=== PATIENT | female | born 1995 | race Caucasian/White ===

== ENCOUNTER 2021-06-07 19:46 | Inpatient (IN) ==
[2021-06-07 22:02] LABS: Basophils # (auto) 0.01 K/uL (0-0.2); Basophils % (auto) 0.1 %; Eosinophils # (auto) 0.09 K/uL (0-0.5); Hematocrit (blood only) 41.5 % (37-47); Hemoglobin 13.5 g/dL (12.0-16.0); Immature Granulocytes # (auto) 0.01 K/uL (0.00-0.02); Immature Granulocytes % (auto) 0.1 %; Lymphocytes # (auto) 2.21 K/uL (1.2-3.4); Lymphocytes % (auto) 24.3 %; Mean Corpuscular Hemoglobin 29.2 pg (25-34); Mean Corpuscular Hgb Conc 32.5 g/dL (32-36); Mean Corpuscular Volume 89.8 fL (80-100); Monocytes # (auto) 0.75 K/uL (0.11-0.59); Monocytes % (auto) 8.3 %; Neutrophils # (auto) 6.01 K/uL (1.4-6.5); Neutrophils % (auto) 66.2 %; Platelet Count 406 K/uL (130-400); RDW Coefficient of Variation 13.5 % (11.5-14.5); RDW Standard Deviation 44.2 fL (36.4-46.3); Red Blood Count 4.62 M/uL (4.2-5.4); White Blood Count 9.08 K/uL (4.8-10.8)
[2021-06-07 22:23] LABS: Albumin Globulin Ratio 1.5 (0.9-2); Albumin Level 4.4 gm/dl (3.4-5.0); BUN Creatinine Ratio 13.8 (10-20); Bilirubin,Total 0.4 mg/dl (0.2-1.0); Calcium 9.8 mg/dl (8.5-10.1); Creatinine Clr Calc Pharmacy 106.8 ml/min; Est GFR (African American) 116.3 ml/min; Est GFR (Non-African American) 100.3 ml/min; Globulin 2.9 gm/dl (2.5-4.0); Potassium 3.9 mmol/L (3.5-5.1); Total Protein 7.3 gm/dl (6.0-8.3)
[2021-06-07 22:31] LABS: Acetaminophen < 3 ug/ml (10-30); Salicylate < 3.0 mg/dl (3.0-30)
[2021-06-07 23:41] LABS: Appearance Urine Clear (Clear); Bilirubin Urine Negative (Negative); Blood Urine Negative (Negative); Color Urine Yellow; Glucose Urine UA Negative (Negative); Ketones Urine 1+ (Negative); Leukocyte Esterase Urine Negative (Negative); Nitrite Urine Negative (Negative); Protein Urine Negative (Negative); Specific Gravity Urine 1.026 (1.000-1.030); Urobilinogen Urine Negative (Negative)
--- NOTE | 2021-06-07 23:45 | Emergency Department Note ---
Impression & Plan Depression with suicidal ideation, Mood disorder ED Provider Note NAME: TARA VIRK AGE: 26 SEX: F : 1995 ARRIVES VIA: Walk-In INFORMANT: Patient ED PROVIDER(S): Shan Price DO CHIEF COMPLAINT: depression HPI: Patient is a 26-year-old female who presents ER for worsening depression. She notes that she has been taking her medications but she is been feeling more depressed recently. She is been thinking about killing herself and currently has a plan to hang herself. She would go off by herself or no one would find her and hang herself. She denies any headache or change in vision. No chest pain or shortness of breath. No nausea vomiting or diarrhea. No other exacerbating or remitting factors. She was referred in by her psychiatrist from [facility] to be admitted. ROS: See above HPI for pertinent positives & negatives. A total of 10 systems reviewed and were otherwise negative. PAST MEDICAL HISTORY:See Below PAST SURGICAL HISTORY:See Below FAMILY HISTORY:See Below SOCIAL HISTORY:See Below HOME MEDICATIONS:See Below ALLERGIES:See Below VITALS:See Below PHYSICAL EXAMINATION: GENERAL: Sitting up in bed, alert, well appearing, well nourished, no distress, non-toxic EYE EXAM: normal conjunctiva. OROPHARYNX: mucous membranes are moist LUNGS: Clear to auscultation. Normal chest wall mechanics HEART: no murmurs, S1 normal and S2 normal ABDOMEN: abdomen soft, non-tender, normo-active bowel sounds, no masses, no rebound or guarding. UPPER EXTREMITIES: upper extremities are grossly normal. LOWER EXTREMITIES: No pitting edema. NEURO EXAM: Normal sensorium, cranial nerves II-XII grossly intact, normal speech, no gross weakness of arms, no gross weakness of legs. MEDICAL DECISION MAKING: Patient is a 26-year-old female with a past medical history of depression who presents ER for above-stated complaint. Blood work was obtained and showed no significant leukocytosis or anemia. Platelets were slightly up. BMP along with LFTs bilirubin and TSH was unremarkable. UA was clean. was negative. Tox was clean. Alcohol negative. Covid negative. Patient has suicidal ideations with a clear plan. She wants to come in to be admitted. She was evaluated by her psychiatric day care aide. She was referred to see [facility] S. for admission on . Pt was signed out to Dr. Boyd awaiting placement. Triage Nursing notes reviewed. Limited review of prior medical records performed Vital Signs: reviewed and remarkable for tachy Differential diagnosis: Mood disorder, infection, hypoglycemia, electrolyte abnormalities, cardiac sources, intracerebral event, toxicologic, trauma, neurologic, as well as other pathologies. ER treatment provided: See below Diagnostics interpreted by me: ECG: none Laboratory studies: As stated above and show below. Imaging studies: See below Consultation(s): none Procedures: none Critical Care: None Past Med/Surg History Social History Smoking Status: Current every day smoker Feels Safe at Home: Yes Allergies Allergies Allergy/AdvReac Type Severity Reaction Status Date / Time No Known Allergies Allergy Unverified 06/07/21 23:53 Home Meds Home Medications Medication Instructions Recorded Confirmed escitalopram oxalate 20 mg tablet 20 mg PO QAM 06/07/21 06/07/21 Results & Data (ED) Vital Signs Vital Signs - 24 hr 06/07/21 19:54 Temperature 36.6 C Temperature Source Temporal Artery Scan Pulse Rate 122 H Respiratory Rate 18 Respiratory Effort / Characteristics Non-Labored Spontaneous Respiratory Depth Normal Respiratory Pattern Regular Blood Pressure 140/84 Blood Pressure Mean 102 Blood Pressure Position Sitting Pulse Oximetry 97 Oxygen Delivery Method Room Air Sepsis Recent Fever Within 48 Hours No Sepsis New/Unexplained Change in Mental Status No Sepsis Action Taken by Nursing No Action Required Laboratory Data Result diagrams: 06/07/21 21:50 06/07/21 21:50 Lab Results 06/07/21 06/07/21 06/07/21 Range/Units 21:50 21:50 21:50 WBC 9.08 (4.8-10.8) K/uL RBC 4.62 (4.2-5.4) M/uL Hgb 13.5 (12.0-16.0) g/dL Hct 41.5 (37-47) % MCV 89.8 (80-100) fL MCH 29.2 (25-34) pg MCHC 32.5 (32-36) g/dL RDW Std Deviation 44.2 (36.4-46.3) fL RDW Coeff of Danial 13.5 (11.5-14.5) % Plt Count 406 H (130-400) K/uL MPV 10.0 (7.4-10.4) fL Immature Gran % (Auto) 0.1 % Neut % (Auto) 66.2 % Lymph % (Auto) 24.3 % [place] % (Auto) 8.3 % Eos % (Auto) 1.0 % Baso % (Auto) 0.1 % Neut # (Auto) 6.01 (1.4-6.5) K/uL Lymph # (Auto) 2.21 (1.2-3.4) K/uL [place] # (Auto) 0.75 H (0.11-0.59) K/uL Eos # (Auto) 0.09 (0-0.5) K/uL Baso # (Auto) 0.01 (0-0.2) K/uL Immature Gran # (Auto) 0.01 (0.00-0.02) K/uL Sodium 138 (136-145) mmol/L Potassium 3.9 (3.5-5.1) mmol/L Chloride 106 (98-107) mmol/L Carbon Dioxide 24 (21-32) mmol/L Anion Gap 8 (3-11) BUN 11 (6-23) mg/dl Creatinine 0.80 (0.6-1.2) mg/dl Est Cr Clr Drug Dosing 106.8 ml/min Est GFR ( Amer) 116.3 ml/min Est GFR (Non-Af Amer) 100.3 ml/min BUN/Creatinine Ratio 13.8 (10-20) Glucose 94 (70-99(Fasting)) mg/dl Calcium 9.8 (8.5-10.1) mg/dl Total Bilirubin 0.4 (0.2-1.0) mg/dl AST 29 (13-39) U/L ALT 40 (7-52) U/L Alkaline Phosphatase 87 (34-104) U/L Total Protein 7.3 (6.0-8.3) gm/dl Albumin 4.4 (3.4-5.0) gm/dl Globulin 2.9 (2.5-4.0) gm/dl Albumin/Globulin Ratio 1.5 (0.9-2) TSH 2.416 (0.300-4.500) uIu/ml Urine Color Urine Appearance (Clear) Urine pH (4.5-7.5) Ur Specific [place] (1.000-1.030) Urine Protein (Negative) Urine Glucose (UA) (Negative) Urine Ketones (Negative) Urine Blood (Negative) Urine Nitrite (Negative) Urine Bilirubin (Negative) Urine Urobilinogen (Negative) Ur Leukocyte Esterase (Negative) POC Ur Test (NEG) Salicylates (3.0-30) mg/dl Urine Opiates Screen (Neg) Ur Methadone, Qual (Neg) Acetaminophen (10-30) ug/ml Urine Barbiturates (Neg) Ur Phencyclidine (PCP) (Neg) U Amphetamin/Meth Scrn (Neg) MDMA (Ecstasy) Screen (Neg) U Benzodiazepines Scrn (Neg) Ur Cocaine Metabolite (Neg) U Marijuana (THC) Screen (Neg) Ethyl Alcohol mg/dL (<10.0) mg/dl SARS-CoV-2, RNA, NAAT (NEGATIVE) 06/07/21 06/07/21 06/07/21 Range/Units 21:50 21:50 23:08 WBC (4.8-10.8) K/uL RBC (4.2-5.4) M/uL Hgb (12.0-16.0) g/dL Hct (37-47) % MCV (80-100) fL MCH (25-34) pg MCHC (32-36) g/dL RDW Std Deviation (36.4-46.3) fL RDW Coeff of Danial (11.5-14.5) % Plt Count (130-400) K/uL MPV (7.4-10.4) fL Immature Gran % (Auto) % Neut % (Auto) % Lymph % (Auto) % [place] % (Auto) % Eos % (Auto) % Baso % (Auto) % Neut # (Auto) (1.4-6.5) K/uL Lymph # (Auto) (1.2-3.4) K/uL [place] # (Auto) (0.11-0.59) K/uL Eos # (Auto) (0-0.5) K/uL Baso # (Auto) (0-0.2) K/uL Immature Gran # (Auto) (0.00-0.02) K/uL Sodium (136-145) mmol/L Potassium (3.5-5.1) mmol/L Chloride (98-107) mmol/L Carbon Dioxide (21-32) mmol/L Anion Gap (3-11) BUN (6-23) mg/dl Creatinine (0.6-1.2) mg/dl Est Cr Clr Drug Dosing ml/min Est GFR ( Amer) ml/min Est GFR (Non-Af Amer) ml/min BUN/Creatinine Ratio (10-20) Glucose (70-99(Fasting)) mg/dl Calcium (8.5-10.1) mg/dl Total Bilirubin (0.2-1.0) mg/dl AST (13-39) U/L ALT (7-52) U/L Alkaline Phosphatase (34-104) U/L Total Protein (6.0-8.3) gm/dl Albumin (3.4-5.0) gm/dl Globulin (2.5-4.0) gm/dl Albumin/Globulin Ratio (0.9-2) TSH (0.300-4.500) uIu/ml Urine Color Urine Appearance (Clear) Urine pH (4.5-7.5) Ur Specific [place] (1.000-1.030) Urine Protein (Negative) Urine Glucose (UA) (Negative) Urine Ketones (Negative) Urine Blood (Negative) Urine Nitrite (Negative) Urine Bilirubin (Negative) Urine Urobilinogen (Negative) Ur Leukocyte Esterase (Negative) POC Ur Test (NEG) Salicylates < 3.0 L (3.0-30) mg/dl Urine Opiates Screen (Neg) Ur Methadone, Qual (Neg) Acetaminophen < 3 L (10-30) ug/ml Urine Barbiturates (Neg) Ur Phencyclidine (PCP) (Neg) U Amphetamin/Meth Scrn (Neg) MDMA (Ecstasy) Screen (Neg) U Benzodiazepines Scrn (Neg) Ur Cocaine Metabolite (Neg) U Marijuana (THC) Screen (Neg) Ethyl Alcohol mg/dL < 10.0 (<10.0) mg/dl SARS-CoV-2, RNA, NAAT NEGATIVE (NEGATIVE) 06/07/21 06/07/21 06/07/21 Range/Units 23:15 23:15 Unknown WBC (4.8-10.8) K/uL RBC (4.2-5.4) M/uL Hgb (12.0-16.0) g/dL Hct (37-47) % MCV (80-100) fL MCH (25-34) pg MCHC (32-36) g/dL RDW Std Deviation (36.4-46.3) fL RDW Coeff of Danial (11.5-14.5) % Plt Count (130-400) K/uL MPV (7.4-10.4) fL Immature Gran % (Auto) % Neut % (Auto) % Lymph % (Auto) % [place] % (Auto) % Eos % (Auto) % Baso % (Auto) % Neut # (Auto) (1.4-6.5) K/uL Lymph # (Auto) (1.2-3.4) K/uL [place] # (Auto) (0.11-0.59) K/uL Eos # (Auto) (0-0.5) K/uL Baso # (Auto) (0-0.2) K/uL Immature Gran # (Auto) (0.00-0.02) K/uL Sodium (136-145) mmol/L Potassium (3.5-5.1) mmol/L Chloride (98-107) mmol/L Carbon Dioxide (21-32) mmol/L Anion Gap (3-11) BUN (6-23) mg/dl Creatinine (0.6-1.2) mg/dl Est Cr Clr Drug Dosing ml/min Est GFR ( Amer) ml/min Est GFR (Non-Af Amer) ml/min BUN/Creatinine Ratio (10-20) Glucose (70-99(Fasting)) mg/dl Calcium (8.5-10.1) mg/dl Total Bilirubin (0.2-1.0) mg/dl AST (13-39) U/L ALT (7-52) U/L Alkaline Phosphatase (34-104) U/L Total Protein (6.0-8.3) gm/dl Albumin (3.4-5.0) gm/dl Globulin (2.5-4.0) gm/dl Albumin/Globulin Ratio (0.9-2) TSH (0.300-4.500) uIu/ml Urine Color Yellow Urine Appearance Clear (Clear) Urine pH 5.0 (4.5-7.5) Ur Specific [place] 1.026 (1.000-1.030) Urine Protein Negative (Negative) Urine Glucose (UA) Negative (Negative) Urine Ketones 1+ H (Negative) Urine Blood Negative (Negative) Urine Nitrite Negative (Negative) Urine Bilirubin Negative (Negative) Urine Urobilinogen Negative (Negative) Ur Leukocyte Esterase Negative (Negative) POC Ur Test NEG (NEG) Salicylates (3.0-30) mg/dl Urine Opiates Screen Neg (Neg) Ur Methadone, Qual Neg (Neg) Acetaminophen (10-30) ug/ml Urine Barbiturates Neg (Neg) Ur Phencyclidine (PCP) Neg (Neg) U Amphetamin/Meth Scrn Neg (Neg) MDMA (Ecstasy) Screen Neg (Neg) U Benzodiazepines Scrn Neg (Neg) Ur Cocaine Metabolite Neg (Neg) U Marijuana (THC) Screen Neg (Neg) Ethyl Alcohol mg/dL (<10.0) mg/dl SARS-CoV-2, RNA, NAAT (NEGATIVE) Discharge Plan Visit Data Chief Complaint: Mental Health Evaluation Stated Complaint: MENTAL HEALTH EVAL ED Provider: Shan Price Discharge Problem: Depression with suicidal ideation, Mood disorder Forms Stand Alone Forms: My [facility], Suicide Prevention Resources Prescriptions Prescriptions: No Action escitalopram oxalate 20 mg tablet 20 mg PO QAM RF: 0 Referrals Referrals: Manoj Prieto MD [Primary Care Provider] -
[2021-06-08 00:03] LABS: Amphetamines+Metham, Urine Neg (Neg); Barbiturates, Urine Neg (Neg); Benzodiazepine, Urine Neg (Neg); Cocaine, Urine Neg (Neg); MDMA (Ecstacy), Urine Neg (Neg); Methadone, Urine Neg (Neg); Opiate, Urine Neg (Neg); Phencyclidine, Urine Neg (Neg)
[2021-06-08] MEDS ORDERED: hydrOXYzine HCl 25 MG TAB PO PRN ×2 (00:59)
[2021-06-08] MEDS ORDERED: SODIUM CHLORIDE 0.65% NA SOLN 45 ML (OCEAN) PRN (00:59)
[2021-06-08] MEDS ORDERED: MAGNESIUM HYDROXIDE SUSP 30 ML UDC PO PRN (00:59)
[2021-06-08] MEDS ORDERED: BISMUTH SUBSALICYLATE LIQD 236 ML PO PRN (00:59)
[2021-06-08] MEDS ORDERED: ALUMINUM/MAGNESIUM SUSP 30 ML UDC PO PRN (00:59)
[2021-06-08] MEDS ORDERED: ACETAMINOPHEN 325 MG TAB PO PRN (00:59)
--- NOTE | 2021-06-08 02:11 | Emergency Department Note ---
ED Visit Note Patient was admitted to [facility] after evaluation by the psychiatric counselor at 2:11 AM .
[2021-06-08] MEDS ORDERED: ESCITALOPRAM OXALATE 10 MG TAB PO STA (12:14)
[2021-06-08] MEDS ORDERED: ESCITALOPRAM OXALATE 10 MG TAB PO SCH (12:15)
--- NOTE | 2021-06-08 12:34 | History & Physical ---
Date of Service June 08, 2021 Impression / Recommendations Impression 26 yo female with chronic dysthymia presenting with double depression (superimposed MDD) following phase of life transition. Depression interfered with taking licensing exams and she is grieving her cat. (1) Depression with suicidal ideation: (2) Persistent depressive disorder: The patient was admitted to the [facility] ([facility] mental health unit) on q15 min checks (behavioral with suicide precautions) for safety. The patient will participate in group, recreational, and milieu therapies and will be offered additional individual and family sessions as clinically appropriate. Risks/benefits/alternatives reviewed re: antidepressants for the treatment of depression and/or anxiety. Discussed continuing Lexapro trial or switching to an SNRI. Patient would like additional time to consider so will take Lexapro 10 mg today and reassess options in am. 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 Chief Complaint "I've been depressed for as long as I can remember but never had suicidal thoughts like this". 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 She had difficulty focussing and getting up for work and "that on top of my ADHD was too much". Her mother came out to help her mood and one of her 2 cats in the car in it's carrier on the third day of the trip. She does not view herself as a particularly anxious person but she is having alot of negative self talk over her job prospects and hopeless re: requirements for [place] licensure. None of her internal medicine nurse practitioner hours count. She also feels unable to work at this time due to intrusive negative thoughts and suicidal ideation. Her energy and motivation are poor. She met with [facility] psychiatry via telehealth yesterday and was directed to the ED due to persistent suicidal ideation with plan. She had thoughts to hang herself and had thought of a place and which stores she could go to to buy the rope. She views her mother and step-father as supportive and has a network of friends but the friends are predominately in [facility] so she feels somewhat isolated. She states that growing up she always felt "different" and relates that to realization that she was colon. Although she was aware from elementary school she did not come out to her family until pharmacy school and she doesn't report being in a relationship for some time. She was a "B/C" student in pharmacy school so did not seek a residency. She reports inattentive symptoms of ADHD since childhood but that she didn't need to study much in high school or college. She hasn't tolerated medications very well in the past or only had transient response. Past Psychiatric History Previous Psych History: saw psychiatric shotblast equipment operator until appt yesterday with Dr. Clements at [facility] and Brittny Moore. Current Psychiatric Diagnosis: MDD Previous Psych Admissions: none Do You Have Access To A Gun?: No Describe Attempts in the Past: attempted carbon monoxide poisoned during undergrad (per [facility]) Past Medication Trials: Prozac up to 60 mg, only benefit for 1 month; lamical (denies manic or hypomanic symptoms), Wellbutrin (2 separate trials, irritable both times), Vyvanse (severe insomnia), Adderall (helpful but makes intrussive thoughts worse), Lexapro 2-3 weeks--no perceived benefit. Allergies Allergy/AdvReac Type Severity Reaction Status Date / Time No Known Allergies Allergy Unverified 06/07/21 23:53 Home Medications Medication Instructions Recorded Confirmed Type escitalopram oxalate 20 mg tablet 20 mg PO QAM 06/07/21 06/07/21 History Family History Family History of: Depression and Bipolar Family Mental Health History Comment: paternal aunt and uncle with bipolar, aunt attempted suicide; maternal cousin with SA; cousin with D&A; brother depression Alcohol History Hx of Alcohol Use Over the Past 12 Months: No AUDIT Total Score: 0 Smoking Use Have You Smoked or Used Tobacco Products in the Last 30 Days: Yes tobacco type: e-cigarettes Smoking Status: Current every day smoker Substance History Hx of Prescription Med Misuse Over the Past 12 Months: No Hx of Over the Counter Med Misuse Over the Past 12 Months: No Hx of Inhalent Misuse Over the Past 12 Months: No Hx of Organic Substance Use Over the Past 12 Months: Yes (THC - ocassionally) Hx of Illegal Substances/Street Drug Use Over Past 12 Months: No Problems as a Result of Past Substance Use: None Identified Problems as a Result of Past Substance Use Comments: Hx of experimental substance use from age [age]. THC recently Personal History Living Arrangements: Home (with mother and step-father) Childhood: raised in [place] until moved here in 5th Highest Grade Completed: Graduate School (Pharm D) Employment Status: Unemployed Marital Status: Single Number Of Children: 0 Beliefs That Will Affect Care: None Current Legal Problems: No Hx Legal Problems: No Hx Traumatic Life Events: Yes (loss of cat) Patient History Medical History (Updated 06/08/21 @ 12:55 by Aurea Childers MD) No active medical problems Social History Smoking Status: Current every day smoker Preferred Language: Cambodian Communication Ability: Effective Bench Grinder Required: No Beliefs That Will Affect Care: None Feels Safe at Home: Yes Assistive Devices: Glasses Review of Systems Review of Systems: All systems reviewed & are unremarkable except as noted in HPI & below Physical Exam Psychiatric: Orientation: alert and oriented x 3 Apperance: appropriately dressed and appropriately groomed Eye Contact: good eye contact Motor Behavior: no abnormal motor movements Speech: normal rate/rhythm/volume of speech Affect: + depressed affect Mood: + depressed mood Thought Process: goal directed thought process Thought Content: reality based without delusions Suicidal Thoughts: denies suicidal intent (on unit); + reports suicidal thoughts and + reports suicidal plan Homicidal Thoughts: denies homicidal thoughts Hallucinations: no auditory hallucinations and no visual hallucinations Cognition: attention grossly intact and language grossly intact Estimated Intelligence: consistent with education level Insight: + limited insight Judgement: + limited judgement Vital Signs (Past 24 Hours): Last Vital Signs Temp 36.5 C 06/08/21 06:30 Pulse 85 06/08/21 06:31 Resp 16 06/08/21 06:30 BP 117/82 06/08/21 06:31 Pulse Ox 97 06/08/21 02:14 Exam Statement: A physical exam was performed in the ED by Dr. Price for the purposes of medical clearance. I accept that physical as correct and adequate for the purposes of the inpatient physical exam. Results & Data ([facility]) Laboratory Results Laboratory Results - last 24 hr 06/07/21 06/07/21 06/07/21 21:50 21:50 21:50 WBC 9.08 RBC 4.62 Hgb 13.5 Hct 41.5 MCV 89.8 MCH 29.2 MCHC 32.5 RDW Std Deviation 44.2 RDW Coeff of Danial 13.5 Plt Count 406 H MPV 10.0 Immature Gran % (Auto) 0.1 Neut % (Auto) 66.2 Lymph % (Auto) 24.3 Sac % (Auto) 8.3 Eos % (Auto) 1.0 Baso % (Auto) 0.1 Neut # (Auto) 6.01 Lymph # (Auto) 2.21 Sac # (Auto) 0.75 H Eos # (Auto) 0.09 Baso # (Auto) 0.01 Immature Gran # (Auto) 0.01 Sodium 138 Potassium 3.9 Chloride 106 Carbon Dioxide 24 Anion Gap 8 BUN 11 Creatinine 0.80 Est Cr Clr Drug Dosing 106.8 Est GFR ( Amer) 116.3 Est GFR (Non-Af Amer) 100.3 BUN/Creatinine Ratio 13.8 Glucose 94 Calcium 9.8 Total Bilirubin 0.4 AST 29 ALT 40 Alkaline Phosphatase 87 Total Protein 7.3 Albumin 4.4 Globulin 2.9 Albumin/Globulin Ratio 1.5 TSH 2.416 Urine Color Urine Appearance Urine pH Ur Specific [place] Urine Protein Urine Glucose (UA) Urine Ketones Urine Blood Urine Nitrite Urine Bilirubin Urine Urobilinogen Ur Leukocyte Esterase POC Ur Test Salicylates Urine Opiates Screen Ur Methadone, Qual Acetaminophen Urine Barbiturates Ur Phencyclidine (PCP) U Amphetamin/Meth Scrn MDMA (Ecstasy) Screen U Benzodiazepines Scrn Ur Cocaine Metabolite U Marijuana (THC) Screen Ethyl Alcohol mg/dL SARS-CoV-2, RNA, NAAT 06/07/21 06/07/21 06/07/21 21:50 21:50 23:08 WBC RBC Hgb Hct MCV MCH MCHC RDW Std Deviation RDW Coeff of Danial Plt Count MPV Immature Gran % (Auto) Neut % (Auto) Lymph % (Auto) Sac % (Auto) Eos % (Auto) Baso % (Auto) Neut # (Auto) Lymph # (Auto) Sac # (Auto) Eos # (Auto) Baso # (Auto) Immature Gran # (Auto) Sodium Potassium Chloride Carbon Dioxide Anion Gap BUN Creatinine Est Cr Clr Drug Dosing Est GFR ( Amer) Est GFR (Non-Af Amer) BUN/Creatinine Ratio Glucose Calcium Total Bilirubin AST ALT Alkaline Phosphatase Total Protein Albumin Globulin Albumin/Globulin Ratio TSH Urine Color Urine Appearance Urine pH Ur Specific [place] Urine Protein Urine Glucose (UA) Urine Ketones Urine Blood Urine Nitrite Urine Bilirubin Urine Urobilinogen Ur Leukocyte Esterase POC Ur Test Salicylates < 3.0 L Urine Opiates Screen Ur Methadone, Qual Acetaminophen < 3 L Urine Barbiturates Ur Phencyclidine (PCP) U Amphetamin/Meth Scrn MDMA (Ecstasy) Screen U Benzodiazepines Scrn Ur Cocaine Metabolite U Marijuana (THC) Screen Ethyl Alcohol mg/dL < 10.0 SARS-CoV-2, RNA, NAAT NEGATIVE 06/07/21 06/07/21 06/07/21 23:15 23:15 Unknown WBC RBC Hgb Hct MCV MCH MCHC RDW Std Deviation RDW Coeff of Danial Plt Count MPV Immature Gran % (Auto) Neut % (Auto) Lymph % (Auto) Sac % (Auto) Eos % (Auto) Baso % (Auto) Neut # (Auto) Lymph # (Auto) Sac # (Auto) Eos # (Auto) Baso # (Auto) Immature Gran # (Auto) Sodium Potassium Chloride Carbon Dioxide Anion Gap BUN Creatinine Est Cr Clr Drug Dosing Est GFR ( Amer) Est GFR (Non-Af Amer) BUN/Creatinine Ratio Glucose Calcium Total Bilirubin AST ALT Alkaline Phosphatase Total Protein Albumin Globulin Albumin/Globulin Ratio TSH Urine Color Yellow Urine Appearance Clear Urine pH 5.0 Ur Specific [place] 1.026 Urine Protein Negative Urine Glucose (UA) Negative Urine Ketones 1+ H Urine Blood Negative Urine Nitrite Negative Urine Bilirubin Negative Urine Urobilinogen Negative Ur Leukocyte Esterase Negative POC Ur Test NEG Salicylates Urine Opiates Screen Neg Ur Methadone, Qual Neg Acetaminophen Urine Barbiturates Neg Ur Phencyclidine (PCP) Neg U Amphetamin/Meth Scrn Neg MDMA (Ecstasy) Screen Neg U Benzodiazepines Scrn Neg Ur Cocaine Metabolite Neg U Marijuana (THC) Screen Neg Ethyl Alcohol mg/dL SARS-CoV-2, RNA, NAAT Current Inpatient Medications Current Inpatient Medications: Current Inpatient Medications Acetaminophen (Acetaminophen 325 Mg Tab) 650 mg PO Q4H PRN PRN Reason: Headache or Minor Fever Stop: 07/08/21 00:58 Al Hydrox/Mg Hydrox/Simethicone (Aluminum/Magnesium Susp 30 Ml Udc) 30 ml PO Q4H PRN PRN Reason: GI Upset Stop: 07/08/21 00:58 Bismuth Subsalicylate (Bismuth Subsalicylate Liqd 236 Ml) 15 ml PO PRN PRN PRN Reason: Loose Stool Stop: 07/08/21 00:58 Escitalopram Oxalate (Escitalopram Oxalate 10 Mg Tab) 10 mg PO QAM ROBERT Stop: 07/09/21 08:59 Hydroxyzine HCl (Hydroxyzine Hcl 25 Mg Tab) 50 mg PO HSZ PRN PRN Reason: Insomnia Stop: 07/08/21 00:58 Hydroxyzine HCl (Hydroxyzine Hcl 25 Mg Tab) 25 mg PO Q4H PRN PRN Reason: Anxiety Stop: 07/08/21 00:58 Magnesium Hydroxide (Magnesium Hydroxide Susp 30 Ml Udc) 30 ml PO DAILY PRN PRN Reason: Constipation Stop: 07/08/21 00:58 Sodium Chloride (Sodium Chloride 0.65% Na Soln 45 Ml ([place])) 1 - 2 sprays NA PRN PRN PRN Reason: Nasal Dryness/Congestion Stop: 07/08/21 00:58
[2021-06-09] MEDS ORDERED: ESCITALOPRAM OXALATE 10 MG TAB PO SCH (09:00)
[2021-06-09] MEDS ORDERED: DULoxetine HCL 20 MG CAP PO ONE (11:05)
--- NOTE | 2021-06-09 14:08 | Psychiatric Progress Note ---
Date of Service June 09, 2021 Impression / Recommendations Impression TARA VIRK is a 26-year-old F who currently lives in [place] with family and was admitted on 06/08/21 00:59 on a 201 voluntary commitment for SI with plan. (1) Depression with suicidal ideation: (2) Persistent depressive disorder: 06/09/21: re-reviewed risks/benefits/alternatives re: SNRI and agreed to a trial of Cymbalta. D/C Lexapro. Start Cymbalta 20 mg today as already received Lexapro 10 (no discontinuation symptoms), and titrate to typical starting dose 30 mg Cymbalta tomorrow. Continued inpatient hospitalization is medically necessary for ongoing monitoring and safety. 06/08/21: The patient was admitted to the [facility] ([facility] mental health unit) on q15 min checks (behavioral with suicide precautions) for safety. The patient will participate in group, recreational, and milieu therapies and will be offered additional individual and family sessions as clinically appropriate. Risks/benefits/alternatives reviewed re: antidepressants for the treatment of depression and/or anxiety. Discussed continuing Lexapro trial or switching to an SNRI. Patient would like additional time to consider so will take Lexapro 10 mg today and reassess options in am. 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 Chief Complaint "I still feel pretty flat. I guess I'm OK" Review of Systems Sleep Information Total Hours of Sleep: 6 Sleep Comments: pt on q-15 minute checks Meal Information Percent Meal Consumed - Breakfast: 100 Percent Meal Consumed - Lunch: 100 Percent Meal Consumed - Dinner: 40 Subjective Subjective Patient was seen & assessed and interval progress reviewed with treatment nursing and social work. Continues to report hopelessness/passive SI. Not particularly hopeful about medication but willing to switch to an SSRI as discussed. Cooperative with unit routines. slept after pm group. Notes fair attention with reading. Physical Exam Psychiatric Orientation: alert and oriented x 3 Apperance: appropriately dressed and appropriately groomed Eye Contact: good eye contact Motor Behavior: no abnormal motor movements Speech: normal rate/rhythm/volume of speech Affect: + depressed affect Mood: + depressed mood Thought Process: goal directed thought process Thought Content: reality based without delusions Suicidal Thoughts: denies suicidal intent (on unit); + reports suicidal thoughts (less frequent/intense) Homicidal Thoughts: denies homicidal thoughts Hallucinations: no auditory hallucinations and no visual hallucinations Cognition: attention grossly intact and language grossly intact Estimated Intelligence: consistent with education level Insight: + limited insight Judgement: + limited judgement Vital Signs (Past 24 Hours) Last Vital Signs Temp 36.7 C 06/09/21 06:30 Pulse 77 06/09/21 06:31 Resp 16 06/09/21 06:30 BP 121/84 06/09/21 06:31 Pulse Ox 97 06/08/21 02:14 Results & Data ([facility]) Current Inpatient Medications Current Inpatient Medications: Current Inpatient Medications Acetaminophen (Acetaminophen 325 Mg Tab) 650 mg PO Q4H PRN PRN Reason: Headache or Minor Fever Stop: 07/08/21 00:58 Al Hydrox/Mg Hydrox/Simethicone (Aluminum/Magnesium Susp 30 Ml Udc) 30 ml PO Q4H PRN PRN Reason: GI Upset Stop: 07/08/21 00:58 Bismuth Subsalicylate (Bismuth Subsalicylate Liqd 236 Ml) 15 ml PO PRN PRN PRN Reason: Loose Stool Stop: 07/08/21 00:58 Duloxetine HCl (Duloxetine Hcl 30 Mg Cap) 30 mg PO QAM ROBERT Stop: 07/10/21 08:59 Hydroxyzine HCl (Hydroxyzine Hcl 25 Mg Tab) 50 mg PO HSZ PRN PRN Reason: Insomnia Stop: 07/08/21 00:58 Hydroxyzine HCl (Hydroxyzine Hcl 25 Mg Tab) 25 mg PO Q4H PRN PRN Reason: Anxiety Stop: 07/08/21 00:58 Magnesium Hydroxide (Magnesium Hydroxide Susp 30 Ml Udc) 30 ml PO DAILY PRN PRN Reason: Constipation Stop: 07/08/21 00:58 Sodium Chloride (Sodium Chloride 0.65% Na Soln 45 Ml ([place])) 1 - 2 sprays NA PRN PRN PRN Reason: Nasal Dryness/Congestion Stop: 07/08/21 00:58 Mental Health & Subst Abuse Tx Psychiatrist Name of Psychiatrist: Vince Clements Psychiatrist's Date of Appointment with Psychiatrist: 06/21/21 Time of Appointment with Psychiatrist: 11:30am Psychiatric Appointment Comment: virtual Therapist Name of Therapist: None Ammonia Worker Name of Ammonia Worker: None Post Discharge Appointments Primary Care Physician Name Of Family Doctor: Braxton Prieto Primary Care Provider Appointment Comment: Follow up as needed Contact Information Discharge Discharge Address: [address] [place], [place] [address]
[2021-06-10] MEDS: DULoxetine HCL 30 MG CAP PO SCH (08:42)
--- NOTE | 2021-06-10 13:52 | Psychiatric Progress Note ---
Date of Service June 10, 2021 Impression / Recommendations Impression TARA VIRK is a 26-year-old F who currently lives in [place] with family and was admitted on 06/08/21 00:59 on a 201 voluntary commitment for SI with plan. (1) Depression with suicidal ideation: (2) Persistent depressive disorder: 06/10/21: need family meeting, continue current dose of Cymbalta with plan for additional titration. Explored option of TMS referral with [facility]. [facility] does not cover and they no longer have [facility] funding. 06/09/21: re-reviewed risks/benefits/alternatives re: SNRI and agreed to a trial of Cymbalta. D/C Lexapro. Start Cymbalta 20 mg today as already received Lexapro 10 (no discontinuation symptoms), and titrate to typical starting dose 30 mg Cymbalta tomorrow. Continued inpatient hospitalization is medically necessary for ongoing monitoring and safety. 06/08/21: The patient was admitted to the [facility] ([facility] mental health unit) on q15 min checks (behavioral with suicide precautions) for safety. The patient will participate in group, recreational, and milieu therapies and will be offered additional individual and family sessions as clinically appropriate. Risks/benefits/alternatives reviewed re: antidepressants for the treatment of depression and/or anxiety. Discussed continuing Lexapro trial or switching to an SNRI. Patient would like additional time to consider so will take Lexapro 10 mg today and reassess options in am. 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 Chief Complaint "I don't feel much different, mainly trying to make decisions about work". Review of Systems Sleep Information Total Hours of Sleep: 6 Sleep Comments: pt on q-15 minute checks Meal Information Percent Meal Consumed - Breakfast: 100 Percent Meal Consumed - Lunch: 100 Percent Meal Consumed - Dinner: 60 Subjective Subjective Patient was seen & assessed and interval progress reviewed with treatment team. Cooperative with groups but tends to not elaborate much/remains flat in conversation. She remains hopeless but denies ongoing SI today. Sleeps in pm out of "boredom I guess". Tolerating med cross taper. Physical Exam Psychiatric Orientation: alert and oriented x 3 Apperance: appropriately dressed and appropriately groomed Eye Contact: good eye contact Motor Behavior: no abnormal motor movements Speech: normal rate/rhythm/volume of speech Affect: + depressed affect Mood: + depressed mood Thought Process: goal directed thought process Thought Content: reality based without delusions Suicidal Thoughts: denies suicidal thoughts Homicidal Thoughts: denies homicidal thoughts Hallucinations: no auditory hallucinations and no visual hallucinations Cognition: attention grossly intact and language grossly intact Estimated Intelligence: consistent with education level Insight: + limited insight Judgement: + limited judgement Vital Signs (Past 24 Hours) Last Vital Signs Temp 36.6 C 06/10/21 06:00 Pulse 84 06/10/21 06:47 Resp 16 06/10/21 06:00 BP 113/76 06/10/21 06:47 Pulse Ox 97 06/08/21 02:14 Results & Data ([facility]) Current Inpatient Medications Current Inpatient Medications: Current Inpatient Medications Acetaminophen (Acetaminophen 325 Mg Tab) 650 mg PO Q4H PRN PRN Reason: Headache or Minor Fever Stop: 07/08/21 00:58 Al Hydrox/Mg Hydrox/Simethicone (Aluminum/Magnesium Susp 30 Ml Udc) 30 ml PO Q4H PRN PRN Reason: GI Upset Stop: 07/08/21 00:58 Bismuth Subsalicylate (Bismuth Subsalicylate Liqd 236 Ml) 15 ml PO PRN PRN PRN Reason: Loose Stool Stop: 07/08/21 00:58 Duloxetine HCl (Duloxetine Hcl 30 Mg Cap) 30 mg PO QAM ROBERT Stop: 07/10/21 08:59 Last Admin: 06/10/21 08:42 Dose: 30 mg Documented by: Hydroxyzine HCl (Hydroxyzine Hcl 25 Mg Tab) 50 mg PO HSZ PRN PRN Reason: Insomnia Stop: 07/08/21 00:58 Hydroxyzine HCl (Hydroxyzine Hcl 25 Mg Tab) 25 mg PO Q4H PRN PRN Reason: Anxiety Stop: 07/08/21 00:58 Magnesium Hydroxide (Magnesium Hydroxide Susp 30 Ml Udc) 30 ml PO DAILY PRN PRN Reason: Constipation Stop: 07/08/21 00:58 Sodium Chloride (Sodium Chloride 0.65% Na Soln 45 Ml ([place])) 1 - 2 sprays NA PRN PRN PRN Reason: Nasal Dryness/Congestion Stop: 07/08/21 00:58 Mental Health & Subst Abuse Tx Psychiatrist Name of Psychiatrist: Vince Clements Psychiatrist's Date of Appointment with Psychiatrist: 06/21/21 Time of Appointment with Psychiatrist: 11:30am Psychiatric Appointment Comment: virtual Therapist Name of Therapist: None Swimming Pool Installer Name of Swimming Pool Installer: None Post Discharge Appointments Primary Care Physician Name Of Family Doctor: Braxton Prieto Primary Care Provider Appointment Comment: Follow up as needed Contact Information Discharge Discharge Address: [facility] [address] [place], [place] [address]
--- NOTE | 2021-06-11 08:40 | Psychiatric Progress Note ---
Date of Service June 11, 2021 Impression / Recommendations Impression TARA VIRK is a 26-year-old woman who currently lives in [place] with family and was admitted on 06/08/21 00:59 on a 201 voluntary commitment for SI with plan. Diagnostically consistent with persistent depressive disorder. She remains in need of psychiatric hospitalization for diagnostic clarification, safety and stabilization, medication management and development of further coping skills. 06/11/21: Continues to tolerate Cymblata without side effects, agrees to further dose titration for depressive symptoms. Family meeting held. Continuing to explore ways to add further structure and meaning to her days as she contemplates a career path change. (1) Depression with suicidal ideation: (2) Persistent depressive disorder: 06/11/21: Increase Cymbalta to 40mg qd. 06/10/21: need family meeting, continue current dose of Cymbalta with plan for additional titration. Explored option of TMS referral with [facility]. [facility] does not cover and they no longer have [facility] funding. 06/09/21: re-reviewed risks/benefits/alternatives re: SNRI and agreed to a trial of Cymbalta. D/C Lexapro. Start Cymbalta 20 mg today as already received Lexapro 10 (no discontinuation symptoms), and titrate to typical starting dose 30 mg Cymbalta tomorrow. Continued inpatient hospitalization is medically necessary for ongoing monitoring and safety. 06/08/21: The patient was admitted to the [facility] ([facility] mental health unit) on q15 min checks (behavioral with suicide precautions) for safety. The patient will participate in group, recreational, and milieu therapies and will be offered additional individual and family sessions as clinically appropriate. Risks/benefits/alternatives reviewed re: antidepressants for the treatment of depression and/or anxiety. Discussed continuing Lexapro trial or switching to an SNRI. Patient would like additional time to consider so will take Lexapro 10 mg today and reassess options in am. 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 Chief Complaint "I'm alright". Review of Systems Sleep Information Total Hours of Sleep: 5 Sleep Comments: pt on q-15 minute checks Meal Information Percent Meal Consumed - Breakfast: 100 Percent Meal Consumed - Lunch: 100 Percent Meal Consumed - Dinner: 100 Subjective Subjective Patient was seen & assessed and interval progress reviewed with treatment team nursing and social work. Isolative, withdrawn but attending groups. Reports frequent boredom. Family meeting today which she feels went well. Continuing to tolerate Cymbalta without any side effects, agreeable to dose increase tomorrow. Remains unsure about what she wants to do after discharge but considering options such as volunteering at [employer]. Physical Exam Psychiatric Orientation: alert and oriented x 3 Apperance: appropriately dressed and appropriately groomed Eye Contact: good eye contact Motor Behavior: no abnormal motor movements Speech: normal rate/rhythm/volume of speech Affect: + constricted affect Mood: + depressed mood Thought Process: goal directed thought process Thought Content: reality based without delusions Suicidal Thoughts: denies suicidal thoughts Homicidal Thoughts: denies homicidal thoughts Hallucinations: no auditory hallucinations and no visual hallucinations Cognition: recent memory grossly intact, remote memory grossly intact, attention grossly intact and language grossly intact Estimated Intelligence: consistent with education level Insight: + limited insight Judgement: + fair judgement Vital Signs (Past 24 Hours) Last Vital Signs Temp 36.6 C 06/11/21 06:00 Pulse 76 06/11/21 06:48 Resp 14 06/11/21 06:00 BP 102/70 06/11/21 06:48 Pulse Ox 97 06/08/21 02:14 Results & Data ([facility] [[email or web address] Current Inpatient Medications Current Inpatient Medications: Current Inpatient Medications Acetaminophen (Acetaminophen 325 Mg Tab) 650 mg PO Q4H PRN PRN Reason: Headache or Minor Fever Stop: 07/08/21 00:58 Al Hydrox/Mg Hydrox/Simethicone (Aluminum/Magnesium Susp 30 Ml Udc) 30 ml PO Q4H PRN PRN Reason: GI Upset Stop: 07/08/21 00:58 Bismuth Subsalicylate (Bismuth Subsalicylate Liqd 236 Ml) 15 ml PO PRN PRN PRN Reason: Loose Stool Stop: 07/08/21 00:58 Duloxetine HCl (Duloxetine Hcl 30 Mg Cap) 30 mg PO QAM ROBERT Stop: 07/10/21 08:59 Last Admin: 06/10/21 08:42 Dose: 30 mg Documented by: Hydroxyzine HCl (Hydroxyzine Hcl 25 Mg Tab) 50 mg PO HSZ PRN PRN Reason: Insomnia Stop: 07/08/21 00:58 Hydroxyzine HCl (Hydroxyzine Hcl 25 Mg Tab) 25 mg PO Q4H PRN PRN Reason: Anxiety Stop: 07/08/21 00:58 Magnesium Hydroxide (Magnesium Hydroxide Susp 30 Ml Udc) 30 ml PO DAILY PRN PRN Reason: Constipation Stop: 07/08/21 00:58 Sodium Chloride (Sodium Chloride 0.65% Na Soln 45 Ml ([place])) 1 - 2 sprays NA PRN PRN PRN Reason: Nasal Dryness/Congestion Stop: 07/08/21 00:58 Mental Health & Subst Abuse Tx Psychiatrist Name of Psychiatrist: Vince Clements Psychiatrist's Date of Appointment with Psychiatrist: 06/21/21 Time of Appointment with Psychiatrist: 11:30am Psychiatric Appointment Comment: virtual Therapist Name of Therapist: Braxton Rosenberg Therapist's Date of Therapist Appointment: 08/12/21 Time of Therapist Appointment: 11:00 AM Therapy Appointment Comment: virtual Photographer News Name of Photographer News: None Post Discharge Appointments Primary Care Physician Name Of Family Doctor: Braxton Prieto Primary Care Provider Appointment Comment: Follow up as needed Contact Information Discharge Discharge Address: [address] [place], [place] [id number]
[2021-06-11] MEDS: DULoxetine HCL 30 MG CAP PO SCH (08:48)
--- NOTE | 2021-06-12 08:21 | Psychiatric Progress Note ---
Date of Service June 12, 2021 Impression / Recommendations Impression TARA VIRK is a 26-year-old woman who currently lives in [place] with family and was admitted on 06/08/21 00:59 on a 201 voluntary commitment for SI with plan. Diagnostically consistent with persistent depressive disorder. She remains in need of psychiatric hospitalization for diagnostic clarification, safety and stabilization, medication management and development of further coping skills. 06/12/21: Continue with Cymbalta titration, tolerating well (1) Depression with suicidal ideation: (2) Persistent depressive disorder: 06/12/21: Increase Cymbalta to 60mg qd 06/11/21: Increase Cymbalta to 40mg qd. 06/10/21: need family meeting, continue current dose of Cymbalta with plan for additional titration. Explored option of TMS referral with [facility]. [facility] does not cover and they no longer have [facility] funding. 06/09/21: re-reviewed risks/benefits/alternatives re: SNRI and agreed to a trial of Cymbalta. D/C Lexapro. Start Cymbalta 20 mg today as already received Lexapro 10 (no discontinuation symptoms), and titrate to typical starting dose 30 mg Cymbalta tomorrow. Continued inpatient hospitalization is medically necessary for ongoing monitoring and safety. 06/08/21: The patient was admitted to the [facility] ([facility] mental health unit) on q15 min checks (behavioral with suicide precautions) for safety. The patient will participate in group, recreational, and milieu therapies and will be offered additional individual and family sessions as clinically appropriate. Risks/benefits/alternatives reviewed re: antidepressants for the treatment of depression and/or anxiety. Discussed continuing Lexapro trial or switching to an SNRI. Patient would like additional time to consider so will take Lexapro 10 mg today and reassess options in am. 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 Chief Complaint "I'm pretty good". Review of Systems Sleep Information Total Hours of Sleep: 6 Sleep Comments: pt on q-15 minute checks Meal Information Percent Meal Consumed - Breakfast: 100 Percent Meal Consumed - Lunch: 100 Percent Meal Consumed - Dinner: 75 Subjective Subjective Patient was seen & assessed and interval progress reviewed with treatment team nursing and social work. Family meeting yesterday. Restless sleep overnight. Thinking more about plans and ways to create structure for her day. Tired today and bored but reports stable mood and denies SI. No side effects from higher dose of Cymbalta. Discussed option to stay at 40mg or further titrate and she'd like to titrate further to 60mg. Physical Exam Psychiatric Orientation: alert and oriented x 3 Apperance: appropriately dressed and appropriately groomed Eye Contact: good eye contact Motor Behavior: no abnormal motor movements Speech: normal rate/rhythm/volume of speech Affect: euthymic affect Mood: no depressed mood and no anxious mood Thought Process: goal directed thought process Thought Content: reality based without delusions Suicidal Thoughts: denies suicidal thoughts Homicidal Thoughts: denies homicidal thoughts Hallucinations: no auditory hallucinations and no visual hallucinations Cognition: recent memory grossly intact, remote memory grossly intact, attention grossly intact and language grossly intact Estimated Intelligence: consistent with education level Insight: + fair insight Judgement: + fair judgement Vital Signs (Past 24 Hours) Last Vital Signs Temp 36.5 C 06/12/21 06:17 Pulse 80 06/12/21 06:18 Resp 18 06/12/21 06:17 BP 112/78 06/12/21 06:18 Pulse Ox 97 06/08/21 02:14 Results & Data ([facility] [[email or web address] Current Inpatient Medications Current Inpatient Medications: Current Inpatient Medications Acetaminophen (Acetaminophen 325 Mg Tab) 650 mg PO Q4H PRN PRN Reason: Headache or Minor Fever Stop: 07/08/21 00:58 Al Hydrox/Mg Hydrox/Simethicone (Aluminum/Magnesium Susp 30 Ml Udc) 30 ml PO Q4H PRN PRN Reason: GI Upset Stop: 07/08/21 00:58 Bismuth Subsalicylate (Bismuth Subsalicylate Liqd 236 Ml) 15 ml PO PRN PRN PRN Reason: Loose Stool Stop: 07/08/21 00:58 Duloxetine HCl (Duloxetine Hcl 20 Mg Cap) 40 mg PO QAM ROBERT Stop: 07/12/21 08:59 Hydroxyzine HCl (Hydroxyzine Hcl 25 Mg Tab) 50 mg PO HSZ PRN PRN Reason: Insomnia Stop: 07/08/21 00:58 Hydroxyzine HCl (Hydroxyzine Hcl 25 Mg Tab) 25 mg PO Q4H PRN PRN Reason: Anxiety Stop: 07/08/21 00:58 Magnesium Hydroxide (Magnesium Hydroxide Susp 30 Ml Udc) 30 ml PO DAILY PRN PRN Reason: Constipation Stop: 07/08/21 00:58 Sodium Chloride (Sodium Chloride 0.65% Na Soln 45 Ml ([place])) 1 - 2 sprays NA PRN PRN PRN Reason: Nasal Dryness/Congestion Stop: 07/08/21 00:58 Mental Health & Subst Abuse Tx Psychiatrist Name of Psychiatrist: Vince Clements Psychiatrist's Date of Appointment with Psychiatrist: 06/21/21 Time of Appointment with Psychiatrist: 11:30am Psychiatric Appointment Comment: virtual Therapist Name of Therapist: Braxton Rosenberg Therapist's Date of Therapist Appointment: 08/12/21 Time of Therapist Appointment: 11:00 AM Therapy Appointment Comment: virtual Tanning Salon Attendant Name of Tanning Salon Attendant: None Post Discharge Appointments Primary Care Physician Name Of Family Doctor: Braxton Prieto Primary Care Provider Appointment Comment: Follow up as needed Contact Information Discharge Discharge Address: [facility] [address] [place], [place] [address]
[2021-06-12] MEDS ORDERED: DULoxetine HCL 20 MG CAP PO SCH (09:00)
--- NOTE | 2021-06-13 08:29 | Discharge Summary ---
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 She had difficulty focussing and getting up for work and "that on top of my ADHD was too much". Her mother came out to help her mood and one of her 2 cats in the car in it's carrier on the third day of the trip. She does not view herself as a particularly anxious person but she is having alot of negative self talk over her job prospects and hopeless re: requirements for [place] licensure. None of her consultant internship hours count. She also feels unable to work at this time due to intrusive negative thoughts and suicidal ideation. Her energy and motivation are poor. She met with [facility] psychiatry via telehealth yesterday and was directed to the ED due to persistent suicidal ideation with plan. She had thoughts to hang herself and had thought of a place and which stores she could go to to buy the rope. She views her mother and step-father as supportive and has a network of friends but the friends are predominately in [facility] so she feels somewhat isolated. She states that growing up she always felt "different" and relates that to realization that she was colon. Although she was aware from elementary school she did not come out to her family until pharmacy school and she doesn't report being in a relationship for some time. She was a "B/C" student in pharmacy school so did not seek a residency. She reports inattentive symptoms of ADHD since childhood but that she didn't need to study much in high school or college. She hasn't tolerated medications very well in the past or only had transient response. Physical Exam Vital Signs (Past 24 Hours) Last Vital Signs Temp 36.5 C 06/13/21 06:37 Pulse 91 H 06/13/21 06:38 Resp 16 06/13/21 06:37 BP 96/65 L 06/13/21 06:38 Pulse Ox 97 06/08/21 02:14 See admission H&P and DOD summary. Principal Diagnosis Persistent Depressive Disorder Psychiatric Data See daily stay summary. In short, patient was engaged with the social/therapeutic milieu of the unit, safety was maintained and the patient was cooperative with care. Medication changes included discontinuation of escitalopram and initiation and titration of Cymbalta and they tolerated this well. A family session was held and safety plan was completed prior to disch ike. In the days leading up to discharge she consistently denied any SI. She actively and insightfully participated in safety planning and in discussions about ways to seek support and recognizing warning signs and utilizing coping skills. Reviewed mobile apps that could be used for additional ways to have their safety plan and contacts easily available should thoughts of SI re-emerge in the future. Reviewed importance of seeking emergency care should SI intensify, worsen or should they feel unsafe in the future which they agree to do. On the day of discharge she stated her mood was "excited and good" and remained future-oriented including seeing family, seeing her cat, exercising at the [facility], volunteering and engaging in aftercare appointments for psychiatry and starting therapy. Day of Discharge Assessment Today the patient voices readiness for discharge. They note improvement in mood and anxiety. They deny thoughts of harm to self or others. Thoughts are organized and they are clinically improved from admission. There is no evidence of psychosis. They improved in the hospital with support and medication adjustments. They agree to take medications as prescribed and keep follow-up appointments. At the time of the discharge they are deemed to be stable and appropriate for outpatient level of care. They are not deemed to be at imminent risk of harm to self or others. They are aware of emergency and crisis services. Knows to call 911 or go to nearest emergency care center if in a crisis which cannot be handled as an outpatient. Transition of Care Transition Of Care Record: was reviewed with the patient Advance Directives Advance Directives Information Provided: Yes Advance Directives: No Mental Health Advance Directive: No Advance Directives on File: No Living Will: No Power of Positive Printer Operator: No Advance Directives Reason:: Declines as Mental Health Visit. Risk Factors Assessment Acute risk is low given denial of SI, improvement in mood, outpatient providers and future-oriented. Chronic risk is low to moderate given prior attempt, psychiatric condition but also with many protective factors. Most significant modifiable risk factors have been addressed including depressed mood through medication adjustment, additional coping skills, safety planning, family meeting and outpatient follow-up. Male: No : Yes Do You Have Access To A Gun?: No Health Problems: No Mental Health Diagnoses: Yes Substance Use Disorders: No Previous Attempt: Yes Family History of Suicide: No Previous Psychiatric Hospitalization: No Hopelessness: No Smoker: No Protective Factors Assessment Employed: No (quit job as a pharmacist in [place]) Stable Relationships: Yes Supportive Family: Yes Discharge Data Lab Results 06/07/21 06/07/21 06/07/21 21:50 21:50 21:50 WBC 9.08 RBC 4.62 Hgb 13.5 Hct 41.5 MCV 89.8 MCH 29.2 MCHC 32.5 RDW Std Deviation 44.2 RDW Coeff of Danial 13.5 Plt Count 406 H MPV 10.0 Immature Gran % (Auto) 0.1 Neut % (Auto) 66.2 Lymph % (Auto) 24.3 [place] % (Auto) 8.3 Eos % (Auto) 1.0 Baso % (Auto) 0.1 Neut # (Auto) 6.01 Lymph # (Auto) 2.21 [place] # (Auto) 0.75 H Eos # (Auto) 0.09 Baso # (Auto) 0.01 Immature Gran # (Auto) 0.01 Sodium 138 Potassium 3.9 Chloride 106 Carbon Dioxide 24 Anion Gap 8 BUN 11 Creatinine 0.80 Est Cr Clr Drug Dosing 106.8 Est GFR ( Amer) 116.3 Est GFR (Non-Af Amer) 100.3 BUN/Creatinine Ratio 13.8 Glucose 94 Calcium 9.8 Total Bilirubin 0.4 AST 29 ALT 40 Alkaline Phosphatase 87 Total Protein 7.3 Albumin 4.4 Globulin 2.9 Albumin/Globulin Ratio 1.5 TSH 2.416 Urine Color Urine Appearance Urine pH Ur Specific [place] Urine Protein Urine Glucose (UA) Urine Ketones Urine Blood Urine Nitrite Urine Bilirubin Urine Urobilinogen Ur Leukocyte Esterase POC Ur Test Salicylates Urine Opiates Screen Ur Methadone, Qual Acetaminophen Urine Barbiturates Ur Phencyclidine (PCP) U Amphetamin/Meth Scrn MDMA (Ecstasy) Screen U Benzodiazepines Scrn Ur Cocaine Metabolite U Marijuana (THC) Screen Ethyl Alcohol mg/dL SARS-CoV-2, RNA, NAAT 06/07/21 06/07/21 06/07/21 21:50 21:50 23:08 WBC RBC Hgb Hct MCV MCH MCHC RDW Std Deviation RDW Coeff of Danial Plt Count MPV Immature Gran % (Auto) Neut % (Auto) Lymph % (Auto) [place] % (Auto) Eos % (Auto) Baso % (Auto) Neut # (Auto) Lymph # (Auto) [place] # (Auto) Eos # (Auto) Baso # (Auto) Immature Gran # (Auto) Sodium Potassium Chloride Carbon Dioxide Anion Gap BUN Creatinine Est Cr Clr Drug Dosing Est GFR ( Amer) Est GFR (Non-Af Amer) BUN/Creatinine Ratio Glucose Calcium Total Bilirubin AST ALT Alkaline Phosphatase Total Protein Albumin Globulin Albumin/Globulin Ratio TSH Urine Color Urine Appearance Urine pH Ur Specific [place] Urine Protein Urine Glucose (UA) Urine Ketones Urine Blood Urine Nitrite Urine Bilirubin Urine Urobilinogen Ur Leukocyte Esterase POC Ur Test Salicylates < 3.0 L Urine Opiates Screen Ur Methadone, Qual Acetaminophen < 3 L Urine Barbiturates Ur Phencyclidine (PCP) U Amphetamin/Meth Scrn MDMA (Ecstasy) Screen U Benzodiazepines Scrn Ur Cocaine Metabolite U Marijuana (THC) Screen Ethyl Alcohol mg/dL < 10.0 SARS-CoV-2, RNA, NAAT NEGATIVE 06/07/21 06/07/21 06/07/21 23:15 23:15 Unknown WBC RBC Hgb Hct MCV MCH MCHC RDW Std Deviation RDW Coeff of Danial Plt Count MPV Immature Gran % (Auto) Neut % (Auto) Lymph % (Auto) [place] % (Auto) Eos % (Auto) Baso % (Auto) Neut # (Auto) Lymph # (Auto) [place] # (Auto) Eos # (Auto) Baso # (Auto) Immature Gran # (Auto) Sodium Potassium Chloride Carbon Dioxide Anion Gap BUN Creatinine Est Cr Clr Drug Dosing Est GFR ( Amer) Est GFR (Non-Af Amer) BUN/Creatinine Ratio Glucose Calcium Total Bilirubin AST ALT Alkaline Phosphatase Total Protein Albumin Globulin Albumin/Globulin Ratio TSH Urine Color Yellow Urine Appearance Clear Urine pH 5.0 Ur Specific [place] 1.026 Urine Protein Negative Urine Glucose (UA) Negative Urine Ketones 1+ H Urine Blood Negative Urine Nitrite Negative Urine Bilirubin Negative Urine Urobilinogen Negative Ur Leukocyte Esterase Negative POC Ur Test NEG Salicylates Urine Opiates Screen Neg Ur Methadone, Qual Neg Acetaminophen Urine Barbiturates Neg Ur Phencyclidine (PCP) Neg U Amphetamin/Meth Scrn Neg MDMA (Ecstasy) Screen Neg U Benzodiazepines Scrn Neg Ur Cocaine Metabolite Neg U Marijuana (THC) Screen Neg Ethyl Alcohol mg/dL SARS-CoV-2, RNA, NAAT Hospital Course (1) Persistent depressive disorder: (2) Depression with suicidal ideation: 06/12/21: Increase Cymbalta to 60mg qd 06/11/21: Increase Cymbalta to 40mg qd. 06/10/21: need family meeting, continue current dose of Cymbalta with plan for additional titration. Explored option of TMS referral with [facility]. [facility] does not cover and they no longer have [facility] funding. 06/09/21: re-reviewed risks/benefits/alternatives re: SNRI and agreed to a trial of Cymbalta. D/C Lexapro. Start Cymbalta 20 mg today as already received Lexapro 10 (no discontinuation symptoms), and titrate to typical starting dose 30 mg Cymbalta tomorrow. Continued inpatient hospitalization is medically necessary for ongoing monitoring and safety. 06/08/21: The patient was admitted to the [facility] on q15 min checks (behavioral with suicide precautions) for safety. The patient will participate in group, recreational, and milieu therapies and will be offered additional individual and family sessions as clinically appropriate. Risks/benefits/alternatives reviewed re: antidepressants for the treatment of depression and/or anxiety. Discussed continuing Lexapro trial or switching to an SNRI. Patient would like additional time to consider so will take Lexapro 10 mg today and reassess options in am. Mental Health & Subst Abuse Tx Psychiatrist Name of Psychiatrist: Vince Clements Psychiatrist's Date of Appointment with Psychiatrist: 06/21/21 Time of Appointment with Psychiatrist: 11:30am Psychiatric Appointment Comment: virtual Therapist Name of Therapist: Braxton Rosenberg Therapist's Date of Therapist Appointment: 08/12/21 Time of Therapist Appointment: 11:00 AM Therapy Appointment Comment: virtual Outreach Associate Name of Outreach Associate: None Post Discharge Appointments Primary Care Physician Name Of Family Doctor: Braxton Prieto Primary Care Provider Appointment Comment: Follow up as needed Contact Information Discharge Discharge Address: [facility] [address] [place], [place] [address] Discharge Plan Discharge Items Patient Disposition: Home - Self-Care Reason For Visit: MHE Discharge Diagnosis: Persistent Depressive Disorder Activity: Resume your previous activity Non-emergency contact: Primary Care Provider, Psychiatrist and Therapist Call non-emergency contact if: you have any medication questions and your symptoms worsen Follow-up/Referrals: Manoj Prieto MD [Primary Care Provider] - Diet: Regular Addtl Attending Provider Instructions: Optional mobile apps: -Suicide Safety Plan -Virtual Hope Box SPECIAL CARE INSTRUCTIONS: 1. Follow through with your scheduled aftercare appointments. If unable to keep an appointment, please call to reschedule. 2. Take your medication only as prescribed. Medication should not be changed or stopped without the approval of your doctor. In the event of worsening symptoms or concerns about side effects, contact your doctor immediately. 3. Utilize new healthy coping skills, anger management skills, and stress management skills learned during your hospitalization. Journal feelings and process them with a support person. Identify stressors or situations that may result in relapse, deterioration or inappropriate behaviors and develop a plan to deal with those issues. 4. If your coping skills are ineffective and you are in crisis, contact your outpatient providers for direction. If unable to reach your providers, please call the [facility] CRISIS LINE AT , go to the [facility] walk-in center at [address], [address], [place], or go to the closest Emergency Room. 5. Avoid alcohol and un-prescribed drugs. 6. You have been provided with the Mental Health Advance Directives Pamphlet for your review. 7. Your condition is stable for discharge to outpatient level of care, but recovery is an ongoing process. Ifthoughts to harm yourself or others return, follow the safety plan developed during your stay. Planning for a safe return home includes securing weapons. Our treatment team recommends weaponsbe removed from the home until your outpatient provider reassesses your progress. In rare cases where the items themselvescannot be removed, guns and ammunitionshould be secured separatelyand keys stored by a reliable personoutside of the home. If you were admitted on an involuntary commitment, the police or other legal authorities may be involved in this process. AFTERCARE APPOINTMENTS: * Please call your insurance company prior to your scheduled appointment to confirm your aftercare providers are covered. Take your insurance information to your appointments. WHO TO CALL AND WHEN: Medical Emergencies: For questions or emergencies related to your hospital stay, please contact the Inpatient Behavioral Health Unit at [phone]. A billing clinician is on-call 16/10 for the Behavioral Health Unit for emergencies At any time you feel your situation is an emergency, you may also call 911 immediately. Pending Studies at Discharge: No Stand-Alone Forms: My [facility] Medications and DC Order Prescriptions: New duloxetine 60 mg Capsule,Delayed Release(Dr/Ec) 60 mg PO QAM 30 Days Qty: 30 RF: 0 Discontinued escitalopram oxalate 20 mg tablet 20 mg PO QAM RF: 0 Discharge Orders: Discharge Order (Routine); Ordered 06/13/21 Ordered By: Rosalba Diaz/Other Patient Handouts: Journaling for Mental Health, Depression: Tips to Help Yourself Admission Data Admit Date/Time: 06/08/21 00:59 Attending Provider: Aurea Childers Admit Provider: Aurea Childers Primary Care Provider: Manoj Prieto Other Interventions: Discharge Summary Assessment (RN) Last Done: 06/13/21 11:33 PSY Interdisciplinary Discharge Planning Last Done: 06/13/21 11:35 Coding Level of Care Code 12793 D/C day mgmt > 30 min Diagnoses Depression with suicidal ideation F32.A; R45.851 Persistent depressive disorder F34.1 Time Spent (min) 35
[2021-06-13] MEDS ORDERED: DULoxetine HCL 60 MG CAP PO SCH (09:00)
[2021-06-13] MEDS ORDERED: DESTROY THIS MEDICATION ONE (10:02)
== END 2021-06-13 13:27 | disposition home or self-care (01) | DRG 881 ==
LOC: ED 19:46 → 3S 06-08 00:59
DX: F34.1 Dysthymic disorder